=== PATIENT | male | born 1940 | race African-American/Black ===

== ENCOUNTER 2017-07-25 13:00 | Emergency (ER) | payer MEDICARE, MEDICAID ==
[~2017-07-25] VITALS: Ht 177.8 cm; Wt 68.0 kg
[~2017-07-25 13:00] MED LIST: ASPIRIN; DONEPEZIL; LISINOPRIL
[2017-07-25 14:53] LABS: HEMATOCRIT. 36.6 % (42.0-52.0); HEMOGLOBIN. 12.4 g/dL (14.0-18.0); MEAN CORPUSCULAR VOLUME 85.6 fL (80.0-94.0); MEAN PLATELET VOLUME 8.5 fl (7.4-10.4); PLATELET 327 x1000/uL (130-400); RED BLOOD CELL COUNT 4.28 mill/uL (4.7-6.1); RED CELL DISTRIBUTION WIDTH 16.9 % (11.6-14.6)
[2017-07-25 14:59] LABS: CLARITY URINE CLEAR (CLEAR); COLOR URINE YELLOW (YELLOW); KETONES URINE NEGATIVE (NEGATIVE); LEUKOCYTE ESTERASE URINE NEGATIVE (NEGATIVE); NITRITE URINE NEGATIVE (NEGATIVE); OCCULT BLOOD URINE NEGATIVE (NEGATIVE); PH URINE 6.5 (4.5-8.0); PROTEIN URINE NEGATIVE (NEGATIVE); UROBILINOGEN URINE 0.2 E.U./dL (0.2-1.0)
[2017-07-25 14:59] LABS: INR 1.1
[2017-07-25 15:05] LABS: AMMONIA < 10 uMol/L (<32)
[2017-07-25 15:09] LABS: CARBON DIOXIDE 28 mEq/L (21-32); CHLORIDE 110 mEq/L (98-107); CREATINE KINASE 81 IU/L (39-308); ETHANOL BLOOD < 10 mg/dL; TROPONIN I 0.02 ng/mL (0.00-0.04)
[2017-07-25 15:30] LABS: *AMPHETAMINES SCREEN URINE NEGATIVE (NEGATIVE); *BARBITURATES SCREEN URINE NEGATIVE (NEGATIVE); *BENZODIAZEPINES SCREEN URINE NEGATIVE (NEGATIVE); *COCAINE SCREEN URINE NEGATIVE (NEGATIVE); CANNABINOID URINE SCREEN NEGATIVE (NEGATIVE); METHADONE URINE SCREEN NEGATIVE (NEGATIVE); OPIATES URINE SCREEN NEGATIVE (NEGATIVE); PHENCYCLIDINE URINE SCREEN NEGATIVE (NEGATIVE)
[2017-07-25 15:58] LABS: ATYPICAL LYMPHOCYTES 3; PLATELET ESTIMATE NORMAL
[2017-07-25 20:04] VITALS: BP 121/68
== END 2017-07-25 20:06 ==
LOC: ER 13:00 → EDBEDREQ 16:28 → EDBEDREQTM 16:28 → CANBEDREQ 17:02 → ER 20:06
DX: S09.8XXA Other specified injuries of head, initial encounter (principal); F03.90 Unspecified dementia, unspecified severity, without behavioral disturbance, psychotic disturbance, mood disturbance, and anxiety; K21.9 Gastro-esophageal reflux disease without esophagitis; D64.9 Anemia, unspecified; R79.1 Abnormal coagulation profile; W19.XXXA Unspecified fall, initial encounter; Y93.89 Activity, other specified; Y99.8 Other external cause status; Y92.89 Other specified places as the place of occurrence of the external cause; Z79.82 Long term (current) use of aspirin
CPT/HCPCS: 36415; 70450; 71045; 80053; 80305; 81003; 82140; 82550; 82962; 84443; 84484; 85025; 85610; 93005; 99285; G0482